=== PATIENT | male | born 1975 | race African-American/Black ===

== ENCOUNTER 2020-07-16 18:25 | Emergency (ER) | payer OTHER ==
[~2020-07-16] VITALS: Ht 172.7 cm; Wt 79.8 kg
[2020-07-16] MEDS ORDERED: SENNA-DOCUSATE1 EAC1 PO (20:44)
[2020-07-16] MEDS ORDERED: NORCO 5-325 TA1 EAC2 PO (20:44)
[2020-07-16 21:10] VITALS: BP 143/96
== END 2020-07-16 21:10 | disposition home or self-care (01) ==
LOC: ER 18:25
DX: S16.1XXA Strain of muscle, fascia and tendon at neck level, initial encounter (principal); S29.012A Strain of muscle and tendon of back wall of thorax, initial encounter; X58.XXXA Exposure to other specified factors, initial encounter; Y93.89 Activity, other specified; Y92.89 Other specified places as the place of occurrence of the external cause; Y99.8 Other external cause status

== ENCOUNTER 2020-07-18 19:45 | Emergency (ER) | payer OTHER ==
[~2020-07-18] VITALS: Ht 172.7 cm; Wt 79.8 kg
[~2020-07-18 19:45] MED LIST: NORCO 5-325 TA1 EAC2 PO; SENNA-DOCUSATE1 EAC1 PO
[2020-07-18 19:53] VITALS: BP 155/96
[2020-07-18] MEDS ORDERED: FLEXERIL PO (20:42)
== END 2020-07-18 21:08 | disposition home or self-care (01) ==
LOC: ER 19:45
DX: G89.29 Other chronic pain (principal); M54.2 Cervicalgia; M54.6 Pain in thoracic spine; Z98.890 Other specified postprocedural states